=== PATIENT | female | born 1990 | race Caucasian/White ===

== ENCOUNTER 2016-10-08 16:49 | Emergency (ER) | payer SELFPAY ==
[2016-10-08 17:27] LABS: CLARITY OTHER (CLEAR); COLOR ORANGE (YELLOW)
[2016-10-08 17:33] LABS: URINARY WBC 20-50
[2016-10-08 17:34] LABS: BACTERIA 1+
[2016-12-27] MEDS ORDERED: OXY-IR 5MG5 MG PO (12:43)
[2016-12-27] MEDS ORDERED: PROPRANOLOL HCL80 MG PO (12:44)
== END 2016-10-08 21:15 | disposition home or self-care (01) ==
LOC: FER 16:49
PROVIDERS: Emergency Medicine
DX: A60.04 Herpesviral vulvovaginitis (principal); N39.0 Urinary tract infection, site not specified; I47.1 Supraventricular tachycardia; Z87.440 Personal history of urinary (tract) infections; Z88.5 Allergy status to narcotic agent; Z79.899 Other long term (current) drug therapy
CPT/HCPCS: 81001; 99283